=== PATIENT | female | born 1990 | race Caucasian/White ===

== ENCOUNTER 2021-07-04 17:46 | Emergency (ER) | payer MEDICAID ==
[~2021-07-04] VITALS: Ht 144.8 cm; Wt 66.7 kg
[2021-07-04 17:46] VITALS: BP 121/82
[~2021-07-04 17:46] MED LIST: CEPH-264 PO; IBUP800T19 PO; INSU100V SQ; INSU100V5 IJ; INSU100V8 SQ
[2021-07-04] MEDS ORDERED: IV NORMAL SALINE 1,000ML 1,000 ML IV SCH (18:00)
--- NOTE | 2021-07-04 18:08 | PHYS DOC ---
Past History Past Medical History: Anxiety, Asthma, Bipolar, Other Past Surgical History: , Tubal ligation Alcohol Use: None Drug Use: None General Adult EDM: Chief Complaint: HYPERGLYCEMIA HPI: HPI: Patient is a 30-year-old female who presents to the emergency department for hyperglycemia. Patient is a type I diabetic. Patient reports that her blood sugars "always run high". Patient reports that over the last 2 weeks she has had increased urination and dry mouth. Patient states that she "knows how to manage her blood sugars" but think she is dehydrated and is requesting IV fluids. Patient takes Humalog and Lantus but states she has not been taking her Lantus as prescribed because it bottoms her out. She reports taking 30 units of Humalog 4 times a day. Patient recently moved here from [place] and has not followed up with her primary care provider regarding her hyperglycemia. Patient states that she has received an insulin pump but cannot use it until she receives training. Patient denies nausea, vomiting, dysuria, chest pain. Review of Systems: Review of Systems: HENT: See HPI Respiratory: See HPI Cardiovascular: See HPI GI: See HPI : See HPI Endocrine: See HPI Current Medications: Current Meds: Current Medications Medications (Trade) Dose Ordered Sig/Bran Start Time Stop Time Status Last Admin Dose Admin Sodium Chloride 1,000 ml @ 1,000 mls/hr Q1H 07/04/21 18:00 07/04/21 18:59 Allergies: Allergies: Allergies Coded Allergies Type Severity Reaction Last Updated Verified No Known Drug Allergies 02/28/14 No Physical Exam: PE: Constitutional: Well developed, well nourished, no acute distress, non-toxic appearance. [] HENT: Normocephalic, atraumatic, bilateral external ears normal, oropharynx moist, no oral exudates, nose normal. [] Eyes: PERRL, EOMI, conjunctiva normal, no discharge. [] Neck: Normal range of motion, no tenderness, supple, no stridor. [] Cardiovascular:Heart rate tachycardic rhythm, no murmur [] Lungs & Thorax: Bilateral breath sounds clear to auscultation [] Abdomen: Bowel sounds normal, soft, no tenderness, no masses, no pulsatile masses. [] Skin: Warm, dry, no erythema, no rash. [] Back: No tenderness, normal range of motion Extremities: No tenderness, no cyanosis, no clubbing, ROM intact, no edema. [] Neurologic: Alert and oriented X 3, normal motor function, normal sensory function, no focal deficits noted. [] Psychologic: Affect normal, judgement normal, mood normal. [] Current Patient Data: Labs: Laboratory Tests Test 07/04/21 17:54 Glucose (Fingerstick) 470 mg/dL (70-99) H Vital Signs: Vital Signs Date Time Temp Pulse Resp B/P (MAP) Pulse Ox O2 Delivery O2 Flow Rate FiO2 07/04/21 17:46 98.2 134 26 121/82 (95) 98 Room Air EKG: EKG: [] Radiology/Procedures: Radiology/Procedures: []PROCEDURE: PORTABLE CHEST 1V XR CHEST 1V INDICATION: soa . COMPARISON STUDY: None. FINDINGS: Lungs: Normal lung volume. No pulmonary mass or consolidation. The tracheobronchial tree and hilar structures are normal. Pleura: No pleural effusion or pneumothorax. Heart and Mediastinum: The cardiomediastinal silhouette is normal. The great vessels of the thorax are normal. Bones and Soft Tissues: The bones and soft tissues are within normal limits. IMPRESSION: No acute cardiopulmonary process. Electronically signed by: Jeffrey Awad MD (07/04/2021 6:18 PM) [facility] DICTATED AND SIGNED BY: JEFFREY AWAD MD DATE: 07/04/211815 CC: GEORGI FUNG APRN; PCP,NO ~ Heart Score: C/O Chest Pain: No Risk Factors: Risk Factors: DM, Current or recent (<one month) smoker, HTN, HLP, family history of CAD, obesity. Risk Scores: Score 0 - 3: 2.5% MACE over next 6 weeks - Discharge Home Score 4 - 6: 20.3% MACE over next 6 weeks - Admit for Clinical Observation Score 7 - 10: 72.7% MACE over next 6 weeks - Early Invasive Strategies Course & Med Decision Making: Course & Med Decision Making Pertinent Labs and Imaging studies reviewed. (See chart for details) [] Patient presents to the emergency department for hyperglycemia. She reports increased urination and dry mouth over the last 2 weeks. Patient is requesting IV fluids because she believes she is dehydrated. Work-up in the ER consisted of blood work including acetone, urinalysis. Patient is reporting shortness of breath therefore chest x-ray was performed. Patient given IV fluids. Patient CBC is unremarkable. Patient's blood sugar was 361. She is negative for ketones. Patient's gap is mildly elevated at 17 and her creatinine is 1.3 likely indicating dehydration. Patient's magnesium, phosphorus and potassium were also low. Patient was given a second liter of normal saline, insulin and her magnesium, phosphorus and potassium were replaced. Chest x-ray did not show any acute findings. Patient advised to increase fluids, monitor bg levels, continue taking insulin as directed and follow up with doctor regarding initiating insulin drip. I discussed with patient all findings and diagnostic testing as well as the need to follow-up with PCP for further evaluation and treatment or return to the ER if any new or worsening symptoms. Strict return precautions were also discussed at length. Patient voiced understanding and agreement with the plan. Patient is hemodynamically stable at the time of disposition. 193: patient refused additonal liter of NS, AMA paper signed. RX for phosphorus supplementation given. Holli Disclaimer: Holli Disclaimer: This electronic medical record was generated, in whole or in part, using a voice recognition dictation system. Departure Departure: Impression: Primary Impression: Hyperglycemia Additional Impression: Dehydration Disposition: HOME / SELF CARE / HOMELESS Condition: GOOD Referrals: [facility] (PCP) Patient Instructions: Hyperglycemia Additional Instructions: You are seen in the emergency department today for hyperglycemia. Please increase your fluids and ensure you are staying well-hydrated. Your electrolytes (potassium, magnesium, phosphorus) were low today. You are being discharged home with phosphorus supplementation. Please take this as directed. Please continue to monitor your blood sugars at home. Continue taking insulin and please follow-up with your primary care provider regarding insulin drip initiation. Follow-up with your primary care provider tomorrow regarding your ER visit. It is important that you follow-up with your primary care provider to monitor your electrolyte levels. Your potassium was low so ensure that you are eating potassium rich foods like green leafy vegetables and bananas. Return to the emergency department if you develop chest pain, shortness of breath, increased urination, weakness, abdominal pain, intractable nausea or vomiting or any new or worsening concerns. Scripts Phosphorus #1 (PHOSPHA 250 NEUTRAL TABLET) 250 Mg Tablet 1 TAB PO Q1HR for hypophosphatemia for 1 Day, #4 TAB 0 Refills Prov: GEORGI FUNG APRN 07/04/21 GEORGI FUNG APRN Jul 04, 2021 18:08
--- NOTE | 2021-07-04 18:20 | RAD ---
XR CHEST 1V INDICATION: soa . COMPARISON STUDY: None. FINDINGS: Lungs: Normal lung volume. No pulmonary mass or consolidation. The tracheobronchial tree and hilar st ructures are normal. Pleura: No pleural effusion or pneumothorax. Heart and Mediastinum: The cardiomediastinal silhouette is normal. The great vessels of the thorax ar e normal. Bones and Soft Tissues: The bones and soft tissues are within normal limits. IMPRESSION: No acute cardiopulmonary process. Electronically signed by: Lukas Lyman MD (07/04/2021 6:18 PM) [facility]
[2021-07-04 18:32] LABS: BASO # 0.1 x10^3/uL (0.0-0.2); BASO % 1 % (0-3); EOS # 0.1 x10^3/uL (0.0-0.7); EOS % 1 % (0-3); HEMATOCRIT 40.6 % (36.0-47.0); HEMOGLOBIN 13.6 g/dL (12.0-15.5); LYMPH % 29 % (24-48); MEAN CORPUSCULAR HEMOGLOBIN 31 pg (25-35); MEAN CORPUSCULAR HGB CONC 33 g/dL (31-37); MEAN CORPUSCULAR VOLUME 92 fL (79-100); MONO # 0.5 x10^3/uL (0.0-1.1); MONO % 5 % (0-9); NEUT # 6.7 x10^3uL (1.8-7.7); NEUT % 65 % (31-73); PLATELET COUNT 328 x10^3/uL (140-400); RED BLOOD COUNT 4.41 x10^6/uL (3.50-5.40); RED CELL DISTRIBUTION WIDTH 14.3 % (11.5-14.5); WHITE BLOOD COUNT 10.3 x10^3/uL (4.0-11.0)
[2021-07-04 18:42] LABS: CALCIUM 9.5 mg/dL (8.5-10.1); CREATININE 1.3 mg/dL (0.6-1.0); GFR 47.5; POTASSIUM 3.2 mmol/L (3.5-5.1)
[2021-07-04 18:47] LABS: ALBUMIN/GLOBULIN RATIO 0.7 (1.0-1.7); MAGNESIUM 1.7 mg/dL (1.8-2.4); TOTAL BILIRUBIN 0.2 mg/dL (0.2-1.0); TOTAL PROTEIN 7.6 g/dL (6.4-8.2)
[2021-07-04] MEDS: IV NORMAL SALINE 1,000ML 1,000 ML IV ONE ×2 (19:00→19:20)
[2021-07-04] MEDS ORDERED: INSULIN REGULAR 100 UNIT/ML 3ML VIAL. IV ONE (19:00)
[2021-07-04] MEDS ORDERED: MAGNESIUM OXIDE 400 MG TABLET PO ONE (19:00)
[2021-07-04] MEDS ORDERED: POTASSIUM CHLORIDE 10 MEQ TABLET.ER. PO ONE (19:00)
[2021-07-04] MEDS ORDERED: POTASSIUM & SODIUM PHOSPHATES PACKET. PO ONE (19:15)
[2021-07-04] MEDS ORDERED: PHOS250T3 PO (19:20)
== END 2021-07-04 19:33 | disposition home or self-care (01) ==
LOC: ER 17:46
DX: E10.65 Type 1 diabetes mellitus with hyperglycemia (principal); E86.0 Dehydration; F41.9 Anxiety disorder, unspecified; F31.9 Bipolar disorder, unspecified; J45.909 Unspecified asthma, uncomplicated
CPT/HCPCS: 36415; 71045; 80053; 82010; 82947; 83735; 84100; 85025; 96361; 96374; 99284; J1815; J7030

== ENCOUNTER 2021-08-05 09:59 | Emergency (ER) | payer MEDICAID ==
[~2021-08-05] VITALS: Ht 144.8 cm; Wt 66.0 kg
[~2021-08-05 09:59] MED LIST changes: +PHOS250T3 PO
[2021-08-05 10:28] VITALS: BP 124/74
--- NOTE | 2021-08-05 10:46 | RAD ---
Right wrist 3 views. HISTORY: Fell yesterday, history of fracture 3 views were taken of the right wrist. There is lucency and sclerosis in the distal radius possibly r elated to an old injury or a prominent subchondral cyst or sclerotically marginated bone cyst. I do n ot have prior imaging for comparison. There is no acute fracture. There is a small focus of sclerosis at the lunate which appears benign. IMPRESSION: 1. Sclerotic marginated lucency in the distal radius from an old injury or bone cyst correlation with prior imaging would be of benefit or an MRI study. 2. No acute fracture noted. Electronically signed by: Ellis Carballo MD (08/05/2021 10:43 AM) [id number]
--- NOTE | 2021-08-05 10:59 | PHYS DOC ---
Past History Past Medical History: Anxiety, Asthma, Bipolar, Other Past Surgical History: , Tubal ligation Alcohol Use: None Drug Use: None General Adult EDM: Chief Complaint: WRIST PAIN HPI: HPI: Patient is a 28-year-old female coming in for right wrist pain since yesterday. Patient has a history of diabetes and states that she fell due to low blood sugars. States she fell and caught herself with her right wrist. No other injuries. She is left-handed. Has a history of a previous fracture to her right distal radius. Review of Systems: Review of Systems: All other systems within normal limits except for as noted in the HPI Allergies: Allergies: Allergies Coded Allergies Type Severity Reaction Last Updated Verified No Known Drug Allergies 08/05/21 No Physical Exam: PE: Constitutional: Well developed, well nourished, no acute distress, non-toxic appearance. [] HENT: Normocephalic, atraumatic, bilateral external ears normal, nose normal. [] Eyes: PERRLA, conjunctiva normal, no discharge. [] Neck: No rigidity, supple, no stridor. [] Cardiovascular: Regular rate and rhythm, brisk cap refill [] Lungs & Thorax: Non labored symmetric respirations, no tachypnea or respiratory distress [] Abdomen: Soft, nondistended. Skin: Warm, dry, no erythema, no rash. [] Back: Unremarkable Extremities: No deformities, range of motion grossly intact, no lower extremity edema. Right wrist: Tenderness over carpals, no deformity, no snuffbox tenderness, neurovascular intact distal [] Neurologic: Alert and oriented X 3, no focal deficits noted. [] Psychologic: Affect normal, judgement normal, mood normal. [] Current Patient Data: Labs: Laboratory Tests Test 08/05/21 10:37 Glucose (Fingerstick) 301 mg/dL (70-99) H Vital Signs: Vital Signs Date Time Temp Pulse Resp B/P (MAP) Pulse Ox O2 Delivery O2 Flow Rate FiO2 08/05/21 10:28 97.7 111 18 124/74 (91) 100 EKG: EKG: [] Radiology/Procedures: Radiology/Procedures: [] Heart Score: C/O Chest Pain: No Risk Factors: Risk Factors: DM, Current or recent (<one month) smoker, HTN, HLP, family history of CAD, obesity. Risk Scores: Score 0 - 3: 2.5% MACE over next 6 weeks - Discharge Home Score 4 - 6: 20.3% MACE over next 6 weeks - Admit for Clinical Observation Score 7 - 10: 72.7% MACE over next 6 weeks - Early Invasive Strategies Course & Med Decision Making: Course & Med Decision Making Right Velcro splint placed on patient for comfort Dragon Disclaimer: Holli Disclaimer: This electronic medical record was generated, in whole or in part, using a voice recognition dictation system. Departure Departure: Impression: Primary Impression: Right wrist injury Disposition: HOME / SELF CARE / HOMELESS Condition: STABLE Referrals: PCP,NO (PCP) Patient Instructions: RICE - Routine Care for Injuries JOANN FIGUEROA MD August 05, 2021 10:59
== END 2021-08-05 11:10 | disposition home or self-care (01) ==
LOC: ER 09:59
DX: S69.91XA Unspecified injury of right wrist, hand and finger(s), initial encounter (principal); E11.9 Type 2 diabetes mellitus without complications; J45.909 Unspecified asthma, uncomplicated; F31.9 Bipolar disorder, unspecified; F41.9 Anxiety disorder, unspecified; W18.39XA Other fall on same level, initial encounter; Y93.89 Activity, other specified; Y92.89 Other specified places as the place of occurrence of the external cause; Y99.8 Other external cause status
CPT/HCPCS: 29125; 73110; 82947; 99284

== ENCOUNTER 2021-08-11 23:16 | Emergency (ER) | payer MEDICAID ==
[~2021-08-11] VITALS: Ht 144.8 cm; Wt 66.0 kg
[2021-08-11 23:20] VITALS: BP 126/78
== END 2021-08-11 23:35 | disposition left against medical advice (07) ==
LOC: ER 23:16
DX: R51.9 Headache, unspecified (principal); R42 Dizziness and giddiness; Z53.21 Procedure and treatment not carried out due to patient leaving prior to being seen by health care provider
CPT/HCPCS: 81025